=== PATIENT | male | born 1975 | race Caucasian/White ===

== ENCOUNTER → 2023-09-02 10:04 | Outpatient (REF) | payer BC, SELFPAY | LOC: HWRAD 10:04 | PROVIDERS: ATTENDING PHYSICIAN Nurse Practitioner Family | DX: R06.09 Other forms of dyspnea (principal) | CPT/HCPCS: 71046 ==

== ENCOUNTER → 2023-09-30 10:24 | Outpatient (REF) | payer BC, SELFPAY | LOC: RCS 10:24 | PROVIDERS: ATTENDING PHYSICIAN Nurse Practitioner Family | DX: R06.09 Other forms of dyspnea (principal) | CPT/HCPCS: 93017 ==

== ENCOUNTER → 2023-10-07 10:41 | Outpatient (REF) | payer BC, SELFPAY | LOC: RCS 10:41 | PROVIDERS: ATTENDING PHYSICIAN Nurse Practitioner Family | DX: R06.09 Other forms of dyspnea (principal) | CPT/HCPCS: 93306 ==